=== PATIENT | female | born 1945 | race Caucasian/White ===

== ENCOUNTER 2017-09-21 08:23 | Observation (INO) | payer OTHER ==
[~2017-09-21] VITALS: Ht 154.9 cm; Wt 58.1 kg
[2017-09-21 09:25] LABS: BASOPHIL (%) 0.7 % (0-1); EOSINOPHIL COUNT 0.1 K/uL (0-0.3); HEMATOCRIT 40.4 % (36.0-46.0); HEMOGLOBIN 13.6 G/DL (11.9-15.5); IMMATURE GRANULOCYTE (%) 0.4 % (0.0-0.7); LYMPHOCYTE (%) 9.4 % (15-42); LYMPHOCYTE COUNT 0.4 K/uL (1.0-2.8); MCH 27.5 PG (29.0-34.0); MCHC 33.7 G/DL (30.0-36.0); MCV 81.8 FL (83-99); MONOCYTE (%) 9.6 % (3-12); MONOCYTE COUNT 0.4 K/uL (0-0.8); NEUTROPHIL (%) 77.9 % (45-76); NEUTROPHIL COUNT 3.6 K/uL (1.8-6.4); PLATELET COUNT 132 K/uL (156-360); RBC DIS.WIDTH-CV 12.4 % (11.8-14.6); RED BLOOD COUNT 4.94 M/uL (3.80-5.20); WHITE BLOOD COUNT 4.6 K/uL (4.1-10.2)
[2017-09-21 09:32] LABS: PTT 28.6 SEC (25-37)
[2017-09-21 09:38] LABS: CHLORIDE 105 mEq/L (99-109); POTASSIUM 4.4 mEq/L (3.7-5.4); SODIUM 140 mEq/L (136-147)
[2017-09-21 09:39] LABS: GLUCOSE 126 mg/dL (70-99)
[2017-09-21 09:43] LABS: GFR ESTIMATE (CALCULATED) 58 mL/min/
[2017-09-21 09:44] LABS: UREA NITROGEN (BUN) 18 mg/dL (9-23)
[2017-09-21 09:46] LABS: TROP-I INTERPRETATION NEGATIVE; TROPONIN-I < 0.01 ng/mL (0.0-0.30)
[2017-09-21 15:56] VITALS: BP 154/81
[2017-09-21 15:59] LABS: TROP-I INTERPRETATION NEGATIVE; TROPONIN-I < 0.01 ng/mL (0.0-0.30)
[2017-09-21 20:00] VITALS: BP 135/72
[2017-09-21 22:16] LABS: TROP-I INTERPRETATION NEGATIVE; TROPONIN-I < 0.01 ng/mL (0.0-0.30)
[2017-09-21 23:07] VITALS: BP 124/89
[2017-09-21] MEDS ORDERED: ADVIL PM1 TABLET PO (23:20)
[2017-09-21] MEDS ORDERED: MELATONIN10 M2 PO (23:33)
[2017-09-22 03:19] VITALS: BP 142/77
[2017-09-22 09:34] VITALS: BP 116/60
[2017-09-22] MEDS ORDERED: ASPIRIN81 M2 PO (09:47)
[2017-09-22] MEDS ORDERED: LIPITOR40 MG PO (09:51)
== END 2017-09-22 11:28 | disposition home or self-care (01) ==
LOC: EME 08:23 → EDOF 12:49 → 5WEST 12:49 → ENRESERV 12:52 → 5WEST 15:41 → ENPENDDIS 09-22 → 5WEST 09-22 11:28
PROVIDERS: Emergency Medicine; Internal Medicine
DX: R07.9 Chest pain, unspecified (principal); R94.31 Abnormal electrocardiogram [ECG] [EKG]; K21.9 Gastro-esophageal reflux disease without esophagitis; E78.5 Hyperlipidemia, unspecified; G62.9 Polyneuropathy, unspecified; I25.10 Atherosclerotic heart disease of native coronary artery without angina pectoris; I45.10 Unspecified right bundle-branch block; Z82.49 Family history of ischemic heart disease and other diseases of the circulatory system; Z83.3 Family history of diabetes mellitus; Z88.2 Allergy status to sulfonamides
CPT/HCPCS: 71045; 80048; 84484; 85025; 85610; 85730; 93005; 93306; 99281; 99285; G0378